=== PATIENT | female | born 2000 | race Two or more races ===

== ENCOUNTER 2024-05-09 14:59 | Emergency (ER) | payer MEDICAID, SELFPAY ==
[2024-05-09 15:00] VITALS: BMI 34.0
[2024-05-09 15:34] VITALS: BP 125/75; PULSE 115; RESP 18; TEMP 37.2; O2SAT 100
--- NOTE | 2024-05-09 15:37 | PD.EDLOWEX ---
Lower Extremity Injury RME/HPI General Chief Complaint: Extremity Injury, Lower Stated Complaint: RIGHT LEG SWOLLEN, HOT AND HARD Time Seen by Provider: 05/09/24 15:37 Arrival date/time: 05/09/24 14:59 23-year-old female presents emergency department today complaints of erythema right lower extremity patient reports pain to the right troncoso patient reports no fever nausea vomiting headache dizziness weakness no chance Limitations: no limitations Related Data Previous Rx's ?Medication ?Instructions ?Recorded Promethazine Hcl/Dextromethorphan 1 tsp PO Q4-6HRPRN PRN COUGH #120 04/06/17 SYRUP * (PHENERGAN DM SYRUP *) mL albuterol sulfate 90 mcg/actuation 1 - 2 puff inhalation Q6HR PRN 04/06/17 aerosol inhaler (ProAir HFA) WHEEZING #1 inh clindamycin HCl 150 mg capsule 450 mg (3 x 150 mg) PO TID 7 days 05/09/24 #63 caps ibuprofen 800 mg tablet 800 mg PO TID PRN pain #30 tabs 05/09/24 Allergies Allergy/AdvReac Type Severity Reaction Status Date / Time NKA* Allergy Uncoded 05/09/24 15:02 Review of Systems Review of Systems Systems Reviewed: All systems reviewed, normal except as documented Constitutional Constitutional: Reports system reviewed and no additional complaints, except as documented, Denies fever(s) and Denies headache(s) Eyes Eyes: Reports system reviewed and no additional complaints, except as documented and Denies blurry vision ENT Ears, Nose, Mouth, and Throat: Reports system reviewed and no additional complaints, except as documented, Denies headache(s), Denies nasal congestion and Denies nasal discharge Cardiovascular Cardiovascular: Reports system reviewed and no additional complaints, except as documented, Denies chest pain and Denies dyspnea Respiratory Respiratory: Reports system reviewed and no additional complaints, except as documented, Denies chest congestion, Denies cough and Denies dyspnea Gastrointestinal Gastrointestinal: Reports system reviewed and no additional complaints, except as documented and Denies abdominal pain Integumentary/Breasts Skin/Breast: Reports system reviewed and no additional complaints, except as documented, Denies rash and Reports other (Skin erythema swelling right lower extremity) Neurologic Neurologic: Reports system reviewed and no additional complaints, except as documented, Reports as per HPI and Denies headache(s) Past Medical History Past Medical History CARDIAC: Negative Congestive Heart Failure RESPIRATORY: Negative Chronic Obstructive Pulmonary Disease (COPD) GENITOURINARY: Negative Renal Disease ENDOCRINE: Negative Diabetes Mellitus Type 1 or Diabetes Mellitus Type 2 Social History SMOKING STATUS: Never smoker SUBSTANCE USE: methamphetamine (smokes) ED Exam General Limitations: Present no limitations General appearance: Present alert and in no apparent distress Head Head exam: Present atraumatic Eye Eye exam: Present normal appearance, PERRL and EOMI ENT ENT exam: Present normal exam, normal oropharynx and mucous membranes moist Neck Neck exam: Present normal inspection, full ROM and trachea midline Chest Chest inspection: Present normal inspection and symmetric chest wall rise Respiratory Respiratory exam: Present normal lung sounds bilaterally Cardiovascular Cardiovascular exam: Present regular rate, normal rhythm and normal heart sounds Abdominal Exam Abdominal exam: Present soft and normal bowel sounds Extremities Exam Extremities exam: Present full ROM, tenderness and normal capillary refill; Absent pedal edema, joint swelling or calf tenderness Back Exam Back exam: Present normal inspection and full ROM Neurological Exam Neurological exam: Present alert, oriented X3 and CN II-XII intact Psychiatric Psychiatric exam: Present normal affect and normal mood Skin Skin exam: Present warm, dry, intact and normal color Course Quality Measures none Orders Category Date Time Status Ibuprofen Tab [Motrin Tab] Med 05/09/24 15:40 Discontinued 800 mg PO X1 ONE Lidocaine 1% 20 ml [Xylocaine 1% 20 ML] Med 05/09/24 15:40 Discontinued 2.1 ml INFL X1 ONE cefTRIAXone [Rocephin] Med 05/09/24 15:40 Discontinued 1,000 mg IM X1 ONE Vital Signs Vital signs: Vital Signs Temperature 98.9 F 05/09/24 15:34 Pulse Rate 115 H 05/09/24 15:34 Respiratory Rate 18 05/09/24 15:34 Blood Pressure 125/75 05/09/24 15:34 Pulse Oximetry (%) 100 05/09/24 15:34 Oxygen Delivery Method Room Air 05/09/24 15:34 O2 saturation 100% room air within normal limits Extremity Injury, Lower MDM Narrative MDM Narrative:: 23-year-old female presents emergency department today complaints of erythema right lower extremity patient reports pain to the right troncoso patient reports no fever nausea vomiting headache dizziness weakness no chance On exam patient has cellulitis right lower extremity patient given antibiotics here patient instructed return in 2 days for reevaluation For emergent concerns patient struck to return immediately Patient data External records reviewed:: [facility] previous records Clinical information provided by:: patient Social determinants that could affect healthcare access:: none Patient has the following chronic illnesses:: None How is presenting disease/condition affected by chronic disease/condition?: no chronic disease Evaluation data The following diagnostics were reviewed and interpreted by me:: other (specify) (N/A) Lab and/or radiology exams considered but not ordered:: Consider not ordered Interpretation Summary: N/A Medications / Prescriptions Medications or Prescriptions considered but not ordered:: Given Medication administrations:: Medication Administration History Discontinued Medications Ceftriaxone Sodium (Ceftriaxone Sod Inj 1,000 Mg Vial) 1,000 mg IM X1 ONE Stop: 05/09/24 15:41 Last Admin: 05/09/24 15:55 Dose: 1,000 mg Documented By: JENNIFER Ibuprofen (Ibuprofen Tab 400 Mg Tablet) 800 mg PO X1 ONE Stop: 05/09/24 15:41 Last Admin: 05/09/24 15:56 Dose: 800 mg Documented By: JENNIFER Lidocaine HCl (Lidocaine Hcl 1% 20 Ml Vial) 2.1 ml INFL X1 ONE Stop: 05/09/24 15:41 Last Admin: 05/09/24 15:56 Dose: 2.1 ml Documented By: JENNIFER Given Consultations Consultation(s) initiated? (list below): No Diagnosis Extremity Injury, Lower Differential Diagnosis: other (Cellulitis, abscess) Most likely diagnosis given after review of the tests above:: Cellulitis Admission Indicated Admission indicated?: not indicated Admission Request Was there a request for admission?: No Disposition Plan Disposition Plan: Discharge Discharge Attestation Discharge Attestation: The patient and all family members were given an opportunity to ask questions and understood the discharge instructions. Discharge instructions specifically effects, indications for sooner follow up or return to the emergency department, and the expected course of current diagnosis. Patient condition: Stable Discharge Plan Plan Patient Disposition: HOME (Self Care) Disposition Comment: Stable Prescriptions/Referrals Prescriptions/Med Rec: New ibuprofen 800 mg tablet 800 mg PO TID PRN (Reason: pain) Qty: 30 0RF clindamycin HCl 150 mg capsule 450 mg PO TID 7 Days Qty: 63 0RF No Action albuterol sulfate [ProAir HFA] 8.5 GM HFA aerosol inhaler 1 - 2 puff Inhalation Q6HR PRN (Reason: WHEEZING) Qty: 1 0RF Rx Instructions: Please give and use spacer Promethazine Hcl/Dextromethorphan SYRUP * (PHENERGAN DM SYRUP *) 473 ML syrup 1 tsp PO Q4-6HRPRN PRN (Reason: COUGH) Qty: 120 0RF Problem List Clinical Impression: Cellulitis of leg, right Patient/Caregiver Discharge Instructions Education Materials: ED Cellulitis Additional Instructions: Please return in 2 days for recheck for worsening symptoms return immediately Print Language: Polish Stand Alone Forms: Lauren Award Info., Patient Portal Info Letter PA/PROGRAM ARRANGER Supervising Physician PA/PROGRAM ARRANGER Supervising Physician: Dr Leger
[2024-05-09] MEDS: cefTRIAXone SOD INJ 1,000 MG VIAL 1000 MG IM (15:55)
[2024-05-09] MEDS: IBUPROFEN TAB 400 MG TABLET 800 MG PO (15:56)
[2024-05-09] MEDS: LIDOCAINE HCL 1% 20 ML VIAL 2.1 ML INFL (15:56)
== END 2024-05-09 17:27 | disposition home or self-care (01) ==
PROVIDERS: Emergency Provider Emergency Medicine
DX: L03.115 Cellulitis of right lower limb (principal)
CPT/HCPCS: 96372; 99283; J0696; J3490; A9270

== ENCOUNTER 2024-05-10 13:24 | Emergency (ER) | payer MEDICAID, SELFPAY ==
[2024-05-10 13:26] VITALS: BMI 34.0
[2024-05-10 13:50] VITALS: BP 108/67; PULSE 107; RESP 18; TEMP 37.1; O2SAT 97
--- NOTE | 2024-05-10 13:50 | XR_ITS ---
Examination: Duplex scan of the lower extremity, unilateral right complete Date and time of exam: May 10, 2024 1436 hours INDICATIONS: Right calf pain and redness swelling and pain beginning 3 days ago Technique: Duplex scan of the extremity veins using B-mode/grayscale imaging and Doppler spectral analysis and color flow Attention is directed to internal echogenicity, compression and augmentation involving these veins, color flow assessment, spectral analysis Findings: Major deep venous structures in the extremity demonstrate normal course and caliber. There is no evidence of deep vein thrombosis. Normal color flow and spectral analysis Impression: Negative for DVT..
--- NOTE | 2024-05-10 13:51 | PD.EDRME ---
Rapid Medical Screening Exam E Arrival date/time: 05/10/24 13:24 23-year-old female presents emergency department complaints of redness and swelling patient was given injection of antibiotics yesterday discharged home with antibiotics patient reports symptoms have worsened Chief Complaint: Extremity Problem,Nontraumatic Vital signs: Vital Signs Temperature 98.8 F 05/10/24 13:50 Pulse Rate 107 H 05/10/24 13:50 Respiratory Rate 18 05/10/24 13:50 Blood Pressure 108/67 05/10/24 13:50 Pulse Oximetry (%) 97 05/10/24 13:50 Oxygen Delivery Method Room Air 05/10/24 13:50
[2024-05-10 14:08] LABS: Lactate (Lactic Acid) 0.7 mMol/L (0.4-2.0)
[2024-05-10 14:12] LABS: Basophils % (Auto) 0 % (0-2.5); Eosinophils # (Auto) 0.1 Thou/mm3 (0.0-0.5); Eosinophils % (Auto) 1 % (0-10); Hematocrit 38.2 % (36.0-46.0); Hemoglobin 13.3 g/dL (12.0-16.0); Immature Granulocytes % (Auto) 1 % (0-0); Immature Granulocytes Auto 0.04 Thou/mm3 (0.00-0.00); Lymphocytes # (Auto) 2.3 Thou/mm3 (1.0-4.8); Lymphocytes % (Auto) 27 % (10-50); Mean Corpuscular HGB Conc 34.8 g/dl (31.0-37.0); Mean Corpuscular Hemoglobin 29.2 pg (25.0-35.0); Mean Corpuscular Volume 84 fL (80-100); Monocytes # (Auto) 0.8 Thou/mm3 (0.0-0.8); Monocytes % (Auto) 10 % (0-12); Neutrophils # (Auto) 5.3 Thou/mm3 (1.8-7.7); Neutrophils % (Auto) 62 % (37-80); Nucleated Red Blood Cell % 0 /100 WBC (0); Platelet Count 220 Thou/mm3 (140-440); RDW Standard Deviation 38.2 fL (36.4-46.3); Red Blood Count 4.56 Miln/mm3 (4.00-5.20); White Blood Count 8.6 Thou/mm3 (3.6-11.0)
[2024-05-10 14:23] LABS: HCG,Qualitative Serum Negative
[2024-05-10 14:28] LABS: Sed Rate (ESR) 38 mm/hr (0-20)
[2024-05-10 14:34] LABS: Alanine Aminotransferase 31 U/L (10-49); Albumin, Serum 4.3 gm/dL (3.5-5.0); Albumin/Globulin Ratio 1.2 (1.2-2.2); Alkaline Phosphatase 90 U/L (46-116); Anion Gap 7 (7-16); Aspartate Amino Transferase 24 U/L (0-34); BUN/Creatinine Ratio 14 Ratio (12-20); Bilirubin,Total 0.5 mg/dL (0.3-1.2); Blood Urea Nitrogen 11 mg/dL (9-23); C-Reactive Protein 3.2 mg/dL (0.0-0.9); Calcium 8.8 mg/dL (8.3-10.6); Calcium (Corrected) 8.8 mg/dL (8.5-10.1); Carbon Dioxide 25.7 mMol/L (20.0-31.0); Chloride 103 mMol/L (98-107); Creatinine (Component) 0.8 mg/dL (0.6-1.3); Estimated Creatinine Clearance 117.7 mL/min (>60); Globulin 3.5 gm/dL (2.3-3.5); Glucose 88 mg/dL (74-106); Osmolality,Calculated 270 (275-295); Potassium 4.1 mMol/L (3.4-5.1); Procalcitonin 0.06 ng/ml (0.0-0.49); Sodium 136 mMol/L (136-145); Total Protein 7.8 gm/dL (5.7-8.2); eGFR > 60 See Note
--- NOTE | 2024-05-10 14:46 | XR_ITS ---
Examination: Tibia-Fibula, right , 2 views Technique: Tibia-fibula AP lateral 2 views Date and time of exam: May 10, 2024 at 1516 hours INDICATIONS: Right lower leg swelling and pain beginning 3 days ago. FINDINGS: No acute fracture. No cortical bone destruction. No foreign body IMPRESSION: No acute fracture.
[2024-05-10 15:42] VITALS: BP 110/73; PULSE 101; RESP 18; TEMP 36.9; O2SAT 100
--- NOTE | 2024-05-10 20:44 | EDNOTE_ITS ---
ED Extremity Problem RME/HPI General Chief complaint: Extremity Problem,Nontraumatic Stated complaint: RIGHT LEG RED AND SWOLLEN Source: patient Arrival date/time: 05/10/24 13:24 Mode of arrival: ambulatory RME / HPI RME / HPI Narrative: 05/10/24 13:24 23-year-old female presents emergency department complaints of redness and swelling patient was given injection of antibiotics yesterday discharged home with antibiotics patient reports symptoms have worsened. Related Data Previous Rx's ?Medication ?Instructions ?Recorded Promethazine Hcl/Dextromethorphan 1 tsp PO Q4-6HRPRN P RN COUGH #120 04/06/17 SYRUP * (PHENERGAN DM SYRUP *) mL albuterol sulfate 90 mcg/actuation 1 - 2 puff inhalati on Q6HR PRN 04/06/17 aerosol inhaler (ProAir HFA) WHEEZING #1 inh clindamycin HCl 150 mg capsule 450 mg (3 x 150 mg) PO TID 7 days 05/09/24 #63 caps ibuprofen 800 mg tablet 800 mg PO TID PRN pain #30 t abs 05/09/24 Allergies Allergy/AdvReac Type Severity Reaction Status Date / Time No Known Allergies Allergy Verified 05/10/24 13:26 Past Medical History Past Medical History CARDIAC: Negative Congestive Heart Failure RESPIRATORY: Negative Chronic Obstructive Pulmonary Disease (COPD) GENITOURINARY: Negative Renal Disease ENDOCRINE: Negative Diabetes Mellitus Type 1 or Diabetes Mellitus Type 2 Social History SMOKING STATUS: Never smoker SUBSTANCE USE: methamphetamine (smokes) Course Quality Measures none Orders Category Date Time Status US venous doppler LE RT Stat Exams 05/10/24 13:50 Completed XR tibia fibula RT 2V Stat Exams 05/10/24 14:46 Completed Blood Culture (Lab) Stat Lab 05/10/24 14:00 Results CBC Stat Lab 05/10/24 13:57 Completed CMP [Comprehensive Metabolic Panel] Stat Lab 05/10/24 13:57 Completed CRP [C-Reactive Protein] Stat Lab 05/10/24 13:57 Completed ESR [Sed Rate (ESR)] Stat Lab 05/10/24 13:57 Completed HCG,Qualitative Serum Stat Lab 05/10/24 13:57 Completed Lactic Acid [Lactate (Lactic Acid)] Stat Lab 05/10/24 13:57 Completed Procalcitonin Stat Lab 05/10/24 13:57 Completed Vital Signs Vital signs: Vital Signs Temperature 98.8 F 05/10/24 13:50 Pulse Rate 107 H 05/10/24 13:50 Respiratory Rate 18 05/10/24 13:50 Blood Pressure 108/67 05/10/24 13:50 Pulse Oximetry (%) 97 05/10/24 13:50 Oxygen Delivery Method Room Air 05/10/24 13:50 Extremity Problem MDM Narrative MDM Narrative:: Patient eloped. Scribe Attestation: Ruddy Ireland am scribing for and in the presence of Dr. Vásquez. Provider Notation: Although this document has been carefully reviewed, there may still be some phonetic and other typographical errors. These errors are purely grammatical due to imperfections in the software program and should not be construed in any way to compromise the substance of the patient's medical care during this visit. Patient data External records reviewed:: [facility] previous records Clinical information provided by:: patient Social determinants that could affect healthcare access:: none Patient has the following chronic illnesses:: see PMH How is presenting disease/condition affected by chronic disease/condition?: uneffected by Evaluation data The following diagnostics were reviewed and interpreted by me:: lab results and radiology exam(s) Lab and/or radiology exams considered but not ordered:: n/a Interpretation Summary: Examination: Duplex scan of the lower extremity, unilateral right complete Date and time of exam: May 10, 2024 1436 hours INDICATIONS: Right calf pain and redness swelling and pain beginning 3 days ago Technique: Duplex scan of the extremity veins using B-mode/grayscale imaging and Doppler spectral analysis and color flow Attention is directed to internal echogenicity, compression and augmentation involving these veins, color flow assessment, spectral analysis Findings: Major deep venous structures in the extremity demonstrate normal course and caliber. There is no evidence of deep vein thrombosis. Normal color flow and spectral analysis Impression: Negative for DVT.. Dictated By: Primo Ferreira MD Examination: Tibia-Fibula, right , 2 views Technique: Tibia-fibula AP lateral 2 views Date and time of exam: May 10, 2024 at 1516 hours INDICATIONS: Right lower leg swelling and pain beginning 3 days ago. FINDINGS: No acute fracture. No cortical bone destruction. No foreign body IMPRESSION: No acute fracture. Dictated By: Primo Ferreira MD Medications / Prescriptions Medications or Prescriptions considered but not ordered:: n/a Medication administrations:: as above if any Consultations Consultation(s) initiated? (list below): No Diagnosis Extremity Problem Differential Diagnosis: other (patient eloped before encounter and workup completed) Most likely diagnosis given after review of the tests above:: patient eloped before workup completed Admission Indicated Admission indicated?: not indicated Explain why admission is indicated or not indicated:: patient eloped before encounter and workup completed Admission Request Was there a request for admission?: No Disposition Plan Disposition Plan: other (specify) (patient eloped before encounter and workup completed) Discharge Plan Plan Patient Disposition: Elopement Disposition Comment: unk the time when pt elopement from ED Prescriptions/Referrals Prescriptions/Med Rec: No Action albuterol sulfate [ProAir HFA] 8.5 GM HFA aerosol inhaler 1 - 2 puff Inhalation Q6HR PRN (Reason: WHEEZING) Qty: 1 0RF Rx Instructions: Please give and use spacer Promethazine Hcl/Dextromethorphan SYRUP * (PHENERGAN DM SYRUP *) 473 ML syrup 1 tsp PO Q4-6HRPRN PRN (Reason: COUGH) Qty: 120 0RF ibuprofen 800 mg tablet 800 mg PO TID PRN (Reason: pain) Qty: 30 0RF clindamycin HCl 150 mg capsule 450 mg PO TID 7 Days Qty: 63 0RF Referrals: Gustavo Obando MD [Primary Care Provider] - In 1 week Problem List Clinical Impression: History of elopement from health care facility Patient/Caregiver Discharge Instructions Print Language: Namibian
--- NOTE | 2024-05-10 21:12 | PC.NURSE ---
PT CALLED FROM [facility] NO ANSWER AT THIS TIME
--- NOTE | 2024-05-10 21:48 | PC.NURSE ---
PT CALLED BACK FROM [facility] NO ANSWER
== END 2024-05-11 10:32 | disposition left against medical advice (07) ==
PROVIDERS: Nurse Practitioner Primary Care; Emergency Provider Emergency Medicine; PCP Family Medicine
DX: M79.89 Other specified soft tissue disorders (principal); Z53.29 Procedure and treatment not carried out because of patient's decision for other reasons
CPT/HCPCS: 36415; 73590; 80053; 83605; 84145; 84703; 85025; 85652; 86140; 87040; 93971; 99284